=== PATIENT | female | born 2005 | race Asian ===

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

== ENCOUNTER 2023-05-20 17:57 | Emergency (ER) | payer OTHER, SELFPAY ==
[2023-05-20 18:05] VITALS: BP 151/88; PULSE 136; RESP 18; TEMP 37.8; O2SAT 97; BMI 18.3
--- NOTE | 2023-05-20 18:18 | ED.GENADULT ---
HPI - General Adult General Chief complaint: Abdominal Pain Stated complaint: Lower back and abdomen pain-vag bleeding Time Seen by Provider: 05/20/23 18:05 History of Present Illness HPI narrative: Pt [employer]. Pt c/o lower abdominal and flank pressure for three days. Also c/o spotting for 10 days after her period, feeling nauseated, burning with urination, and bleeding while wiping. Pt states she was tested for and UTI at [facility] and was negative. Tested for gonorrhea/ chlamydia today but tests pending. Pt states same partner for about a year. Pt states she was diagnosed with bacterial vaginosis today and prescribed Flagyl, but advised to come to ER because of the severe pain and burning and blood with urination. Pt notes she took Plan B three months ago and has had irregular periods since, but I've never felt pain like this. 17-year-old young woman presenting to the emergency department with concern of flank pain. This seems to be the primary pain. Was just seen a [facility] today and apparently negative for urinalysis and . Pending gonorrhea and chlamydia testing results. Sounds like that will take 2-3 days yet. She is sexually active with the same partner for about a year. She has not had any unusual discharge vaginally but did test positive for BV today. Just picked up Flagyl prescription. In February took Plan B and since that time has continued to have vaginal spotting. Over the last 3 days though has had increased discomfort in the low abdomen and flank with blood spotting on tissue after urinating which she thinks is vaginal and also painful wiping after urination. She is chronically constipated but does not feel like that is abnormal at this point continuing to have a bowel movement couple times a week. Has been taking ibuprofen which has been helpful. She does note now having a fever referring to the 100.1 temperature measured at triage. She feels little congestion in her throat otherwise no sore throat no shortness of breath. Apparently called and was advised to come in for possible ovarian cyst. Has a history of irregular menses prompting oral contraception. Spotting has continued since taking plan B as noted above. She has had some mild nausea but does not feel she needs any treatment for this. Related Data Home Medications Medication Instructions Recorded Confirmed levonorgestrel 0.15 mg-ethinyl 1 tab PO QDAY 11/01/22 05/20/23 estradiol 0.03 mg tablet ([place] 28) metronidazole 500 mg tablet 500 mg PO BID 05/20/23 05/20/23 Previous Rx's Medication Instructions Recorded ondansetron 4 mg disintegrating 4 mg PO Q4-6H PRN nausea and 05/20/23 tablet vomiting #9 tabs cephalexin 500 mg capsule 500 mg PO TID 7 days #21 caps 05/21/23 phenazopyridine 200 mg tablet 200 mg PO QID PRN urinary pain #10 05/21/23 tabs Allergies Allergy/AdvReac Type Severity Reaction Status Date / Time No Known Drug Allergies Allergy Verified 05/20/23 18:15 Review of Systems Status of ROS: Reports: 6 or more systems reviewed and unremarkable except as noted in History and below [facility] Medical History Unprotected sex ?Z72.51 - High risk heterosexual behavior (ICD-10) Vaginal symptom ?N94.9 - Unspecified condition associated with female genital organs and menstrual cycle (ICD-10) Social History Non-prescribed substance use: denies use Exam Narrative: Exam Narrative: Pleasant. Transitioning as if in discomfort with her hand at her right flank. She is bent over just a little bit. Is breathing easily. Skin is warm and dry. Closed comedonal acne over her cheeks. Oropharynx is moist trace erythema. No exudate. Neck is supple without lymphadenopathy. Lungs are clear. Heart is tachycardic and in a regular rhythm. Is quite tender to percussion in bilateral flanks. Abdomen is flat and soft. Initially sore in the suprapubic area centrally but that seems to be equally sore in the adnexal though reports low more discomfort in the right. Appears mild generally in this area. No peritoneal signs. Normoactive bowel sounds. Extremities are well perfused without edema. Const: Vital Signs, click to edit/add: Vital Signs - 24 hr 05/20/23 18:05 05/20/23 19:28 05/20/23 21:12 Temperature 100.1 F H 100.3 F H 100.0 F H Pulse Rate 106 H Pulse Rate [Pulse Oximeter] 136 H 113 H Respiratory Rate 18 16 16 Blood Pressure 133/89 Blood Pressure [Ri ght Upper Arm] 151/88 H 131/90 H Pulse Oximetry 97 100 97 Oxygen Delivery Me thod Room Air Room Air Room Air Documenting provider has reviewed patient's vital signs: yes Course Vital Signs Vital signs: Initial Vital Signs Temperature 100.1 F H 05/20/23 18:05 Temperature Source Temporal Artery Scan 05/20/23 18:05 Pulse Rate 136 H 05/20/23 18:05 Respiratory Rate 18 05/20/23 18:05 Blood Pressure 151/88 H 05/20/23 18:05 Blood Pressure Mean 109 H 05/20/23 18:05 Blood Pressure Position Sitting 05/20/23 18:05 Pulse Oximetry 97 05/20/23 18:05 Oxygen Delivery Method Room Air 05/20/23 18:05 Vital Signs Temperature 100.1 F H 05/20/23 18:05 Pulse Rate 136 H 05/20/23 18:05 Respiratory Rate 18 05/20/23 18:05 Blood Pressure 151/88 H 05/20/23 18:05 Pulse Oximetry 97 05/20/23 18:05 Oxygen Delivery Method Room Air 05/20/23 18:05 Temperature 100.0 F H 05/20/23 21:12 Pulse Rate 106 H 05/20/23 21:12 Respiratory Rate 16 05/20/23 21:12 Blood Pressure 133/89 05/20/23 21:12 Pulse Oximetry 97 05/20/23 21:12 Oxygen Delivery Method Room Air 05/20/23 21:12 Medications Administered Medications: Discontinued Medications Generic Name Dose Route Start Last Admin Trade Name Freq PRN Reason Stop Dose Admin Ibuprofen 600 mg 05/20/23 18:39 05/20/23 19:05 Ibuprofen 200 Mg Tablet PO 05/20/23 18:40 600 mg ONCE ONE Administration Medical Decision Making MDM Narrative Medical decision making narrative: This elevated temperature or pain could be driving her tachycardia. I would presume that there is some hematuria and possible urinary tract infection/pyelonephritis or urethritis. Could be secondary COVID or influenza also contributing. Perhaps the blood that she is noting upon wiping is actually vaginal and related to this BV. I suppose be could be causing a lot of her abdominal symptoms as well; some women do seem to have much more discomfort with that. No personal or family history of kidney stones apparently. I would like to repeat test and urinalysis. She the would be willing to do gonorrhea chlamydia testing again as results would be available quickly here. Unfortunately she did urinate relatively recently. She would prefer not to have blood draw or IV placed. Would accept oral ibuprofen. At this point have deferred vaginal exam but if indeed blood is vaginal would think more about ectopic source or endometritis though does not seem to have that degree of discomfort. Doubtful that ovarian cyst would be contributing to the blood that she is reporting. Pain symptoms seem inconsistent with ovarian cyst. This process generally does seem to be infectious. Given her preference will start with urinalysis and gonorrhea chlamydia testing along with verifying urine test. After extended time all resulted. Urinalysis does look to have findings consistent with infection and certainly hematuria. Overall she appears to feel a lot better following treatment with ibuprofen. Re-examination the abdomen again seems to have most discomfort centrally in the suprapubic area. Mild. I do not think that ultrasound will answer picture here, at least her concern of ovarian cyst. I think cystitis/UTI/pyelonephritis is likely diagnosis. Admittedly some of the findings in the urine may be related to this BV diagnosis; she has Flagyl for this. I would like to initiate antibiotics for UTI. She would prefer oral medication management. Will start with cephalexin pending urine culture results. See patient discharge plan Lab Data Lab results reviewed: Yes I reviewed the patient's lab results Labs: Lab Results 05/20/23 05/20/23 Range/Units 19:06 19:12 Urine Color Yellow (Yellow) Urine Appearance Clear (Clear) Urine pH 6.0 (5.0-8.5) Ur Specific [place] 1.015 (1.000-1.030) Urine Protein 2+ A (Negative) Urine Glucose (UA) Negative (Negative) Urine Ketones Negative (Negative) Urine Blood 3+ A (Negative) Urine Nitrite Negative (Negative) Urine Bilirubin Negative (Negative) Urine Urobilinogen 0.2 (0.2-1.0) Ur Leukocyte Esterase Trace A (Negative) Urine RBC 5-10 A (0-2) Urine WBC 5-10 A (0-5) Ur Squamous Epith Cells Few (None-Few) Urine Bacteria Few A (None) Urine HCG, Qual Negative (Negative) C.trachomatis Ampl DNA NOT DETECTED (No Detected) SARS-CoV-2 (PCR) Negative SARS-CoV-2 (Negative) Influenza Type A (PCR) Negative PCR FLU A (Negative) Influenza Type B (PCR) Negative PCR FLU B (Negative) N.gonorrhoeae Ampl DNA NOT DETECTED (No Detected) RSV (PCR) Negative PCR RSV (Negative) Discharge Plan Discharge Clinical Impression: Urinary tract infection, Cystitis Patient Disposition: Home, Self-Care Condition: Stable Additional Instructions: Please take antibiotics as prescribed. We will call you if urine culture results recommend different course of action. Starting with cephalexin from [facility]. Take 1 and half tabs of cephalexin tonight and tomorrow morning. Will also make available Zofran(ondansetron) for nausea and Pyridium(phenazopyridine) if you like which can help with that burning sensation. Focus on hydration with water. Avoid juices, sugared drinks at this time. Return for marked and persistent increase in abdominal pain, repeated vomiting, persistent fever. Prescriptions: New ondansetron 4 mg tablet,disintegrating 4 mg PO Q4-6H PRN (Reason: nausea and vomiting) Qty: 9 0RF Rx Instructions: give 1st dose 30min before emetogenic chemo cephalexin 500 mg capsule 500 mg PO TID 7 Days Qty: 21 0RF phenazopyridine 200 mg tablet 200 mg PO QID PRN (Reason: urinary pain) Qty: 10 0RF No Action levonorgestrel-ethinyl estrad [[place] 28] 0.15-0.03 mg tablet 1 tab PO QDAY metronidazole 500 mg tablet 500 mg PO BID Follow Up/Referrals: Provider,Not a Local [Primary Care Provider] - Stand Alone Forms: [facility] Info Instructions
[2023-05-20] MEDS: IBUPROFEN 200 MG TABLET 600 MG PO (19:05)
[2023-05-20 19:28] VITALS: BP 131/90; PULSE 113; RESP 16; TEMP 37.9; O2SAT 100
[2023-05-20 19:38] LABS: Appearance Urine Clear (Clear); Bilirubin Urine Negative (Negative); Blood Urine 3+ (Negative); Color Urine Yellow (Yellow); Glucose Urine Negative (Negative); Ketones Urine Negative (Negative); Leukocyte Esterase Urine Trace (Negative); Nitrite Urine Negative (Negative); Protein Urine 2+ (Negative); Specific Gravity Urine 1.015 (1.000-1.030); Urobilinogen Urine 0.2 (0.2-1.0)
[2023-05-20 20:06] LABS: PCR FLU A Negative PCR FLU A (Negative); PCR FLU B Negative PCR FLU B (Negative); PCR RSV Negative PCR RSV (Negative); SARS PCR* Negative SARS-CoV-2 (Negative)
[2023-05-20 20:18] LABS: Ur HCG Qualitative* Negative (Negative)
[2023-05-20 20:35] LABS: Bacteria Urine Few; Squamous Epithelial Cell Urine Few (None-Few)
[2023-05-20 21:12] VITALS: BP 133/89; PULSE 106; RESP 16; TEMP 37.8; O2SAT 97
[2023-05-20 21:31] LABS: Chlamydia DNA Amplified* NOT DETECTED (No Detected); GC DNA Amplified* NOT DETECTED (No Detected)
--- NOTE | 2023-05-20 22:14 | PC.NURSE ---
patient DC ambulatory, pain well controlled, DC instructions reviewed with patient, no further questions.
== END 2023-05-20 22:13 | disposition home or self-care (01) ==
PROVIDERS: Emergency Provider Family Medicine
DX: N39.0 Urinary tract infection, site not specified (principal); N30.90 Cystitis, unspecified without hematuria
CPT/HCPCS: 81001; 81025; 87086; 87186; 87491; 87591; 87631; 99283; 99284; A9270

== ENCOUNTER 2024-05-29 00:05 | Outpatient (CLI) | payer OTHER, SELFPAY | END 2024-05-29 00:06 | disposition home or self-care (01) | LOC: AMB 06-16 07:37 | PROVIDERS: Visit Provider Family Medicine | DX: F41.9 Anxiety disorder, unspecified (principal) | CPT/HCPCS: A0998 ==

== ENCOUNTER 2024-05-29 00:33 | Emergency (ER) | payer OTHER, SELFPAY ==
[2024-05-29 00:37] VITALS: BP 148/96; PULSE 83; RESP 18; TEMP 37.1; O2SAT 98; BMI 17.4
--- NOTE | 2024-05-29 01:05 | ED_ITS ---
HPI - General Adult General Chief complaint: Dizziness/Vertigo Stated complaint: shakey, rushing thoughts Time Seen by Provider: 05/29/24 00:58 History of Present Illness HPI narrative: Patient is a 18-year-old woman who his anxiety and depression and is on Lexapro at 10 mg daily recently increased to 15 mg daily. After several days of being on 15 mg patient feels like she is having some tremulousness a general malaise anxiety and fatigue. She has really had no other symptoms of shruti. Patient is uncertain if they 15 mg is working for her is concerned that maybe something metabolically wrong. She has had no chest pain no shortness a breath or abdominal pain no diarrhea no nausea no vomiting no rashes no swelling. Related Data Home Medications ?Medication ?Instructions ?Recorded ?Confirmed levonorgestrel 0.15 mg-ethinyl 1 tab PO QDAY 11/01/22 05/29/24 estradiol 0.03 mg tablet ([place] 28) metronidazole 500 mg tablet 500 mg PO BID 05/20/23 05/20/23 escitalopram oxalate 10 mg tablet mg DAILY 05/29/24 Previous Rx's ?Medication ?Instructions ?Recorded ondansetron 4 mg disintegrating 4 mg PO Q4-6H PRN nausea and 05/20/23 tablet vomiting #9 tabs cephalexin 500 mg capsule 500 mg PO TID 7 days #21 caps 05/21/23 phenazopyridine 200 mg tablet 200 mg PO QID PRN urinary pain #10 05/21/23 tabs Allergies Allergy/AdvReac Type Severity Reaction Status Date / Time No Known Drug Allergies Allergy Verified 05/29/24 00:43 Review of Systems Status of ROS: Reports: 10 or more systems reviewed and unremarkable except as noted in History and below [facility] Medical History Unprotected sex ?Z72.51 - High risk heterosexual behavior (ICD-10) Vaginal symptom ?N94.9 - Unspecified condition associated with female genital organs and menstrual cycle (ICD-10) Social History Non-prescribed substance use: denies use Exam Narrative: Exam Narrative: EXAM GENERAL: Patient appears comfortable and well. EYES: No scleral icterus. LYMPH: No supraclavicular or cervical lymphadenopathy. SKIN: Visible skin seen during exam normal or with benign process only. EXT: No dependent lower extremity pedal edema. HEART: Regular rate and rhythm with no murmurs, rubs, or gallops. LUNGS: Clear to auscultation bilaterally with no crackles or wheezes. ABD: Soft, non tender, non distended. PSYCH: Good eye contact, speech is not pressured. Const: Vital Signs, click to edit/add: Vital Signs - 24 hr 05/29/24 00:37 Temperature 98.8 F Pulse Rate [Right Pulse Oximeter] 83 Respiratory Rate 18 Blood Pressure [Ri ght Upper Arm] 148/96 H Pulse Oximetry 98 Oxygen Delivery Me thod Room Air Course Course ED Course: CBC basic metabolic panel pending. Patient seen and examined. Vital Signs Vital signs: Initial Vital Signs Temperature 98.8 F 05/29/24 00:37 Temperature Source Temporal Artery Scan 05/29/24 00:37 Pulse Rate 83 05/29/24 00:37 Pulse Rhythm Regular 05/29/24 00:37 Respiratory Rate 18 05/29/24 00:37 Blood Pressure 148/96 H 05/29/24 00:37 Blood Pressure Mean 113 H 05/29/24 00:37 Blood Pressure Position Sitting 05/29/24 00:37 Pulse Oximetry 98 05/29/24 00:37 Oxygen Delivery Method Room Air 05/29/24 00:37 Vital Signs Temperature 98.8 F 05/29/24 00:37 Pulse Rate 83 05/29/24 00:37 Respiratory Rate 18 05/29/24 00:37 Blood Pressure 148/96 H 05/29/24 00:37 Pulse Oximetry 98 05/29/24 00:37 Oxygen Delivery Method Room Air 05/29/24 00:37 Temperature 98.8 F 05/29/24 00:37 Pulse Rate 83 05/29/24 00:37 Respiratory Rate 18 05/29/24 00:37 Blood Pressure 148/96 H 05/29/24 00:37 Pulse Oximetry 98 05/29/24 00:37 Oxygen Delivery Method Room Air 05/29/24 00:37 Medical Decision Making MDM Narrative Medical decision making narrative: Patient presents with increased anxiety on higher dose of Lexapro to 15 mg. Lab workup is unremarkable. Patient shows no signs of shruti. This time I did offer reassurance and asked her to lower her Lexapro to 10 mg daily. I recommended close outpatient follow-up. Lab Data Labs: Lab Results 05/29/24 Range/Units 01:13 WBC 7.76 (4.50-11.00) K/uL RBC 4.18 (4.00-5.20) m/uL Hgb 12.2 (12.0-16.0) gm/dL Hct 36.9 (33.0-51.0) % MCV 88 (80-100) fL MCH 29 (26-34) pg MCHC 33 (32-36) gm/dL RDW Coeff of [place] 13.0 (11.5-15.5) % Plt Count 306 (140-440) K/uL Neut % (Auto) 67.7 (42.0-72.0) % Lymph % (Auto) 25.0 (20-44) % [place] % (Auto) 5.0 (0.0-11.0) % Eos % (Auto) 1.9 (0.0-7.0) % Baso % (Auto) 0.3 (0.0-3.0) % Neut # (Auto) 5.25 (1.7-7.0) K/uL Lymph # (Auto) 1.94 (0.90-2.90) K/uL [place] # (Auto) 0.40 (0.00-0.90) K/UL Eos # (Auto) 0.15 (0.00-0.50) K/uL Baso # (Auto) 0.02 (0.00-0.30) K/uL Abs Immat Gran (auto) 0.01 (0.00-0.30) K/uL Imm/Tot Granulo (auto) 0.1 % Sodium 139 (135-149) mmol/L Potassium 3.5 L (3.6-5.1) mmol/L Chloride 106 (96-114) mmol/L Carbon Dioxide 25 (20-32) mmol/L Anion Gap 8 (7-15) mEq/L BUN 10 (5-24) mg/dL Creatinine 0.7 (0.5-1.5) mg/dL Estimated Creat Clear 87.21 Estimated GFR 127 ml/min Glucose 130 H (60-115) mg/dL Calcium 8.6 (8.4-10.6) mg/dL Discharge Plan Discharge Clinical Impression: Anxiety Patient Disposition: Home, Self-Care Condition: Stable Instructions: Anxiety (ED) Additional Instructions: Reduced dose of Lexapro to 10 mg daily Follow-up with your doctor/psychiatrist next week. Activity Level: No Restrictions Discharge Diet: Regular Prescriptions: No Action levonorgestrel-ethinyl estrad [[place] 28] 0.15-0.03 mg tablet 1 tab PO QDAY metronidazole 500 mg tablet 500 mg PO BID ondansetron 4 mg tablet,disintegrating 4 mg PO Q4-6H PRN (Reason: nausea and vomiting) Qty: 9 0RF Rx Instructions: give 1st dose 30min before emetogenic chemo cephalexin 500 mg capsule 500 mg PO TID 7 Days Qty: 21 0RF phenazopyridine 200 mg tablet 200 mg PO QID PRN (Reason: urinary pain) Qty: 10 0RF escitalopram oxalate 10 mg tablet DAILY Follow Up/Referrals: Provider,Not a Local [Primary Care Provider] - Stand Alone Forms: [facility] Info Instructions
[2024-05-29 01:16] LABS: Basophils Absolute Auto 0.02 K/uL (0.00-0.30); Basophils Percent Auto 0.3 % (0.0-3.0); Eosinophils Absolute Auto 0.15 K/uL (0.00-0.50); Eosinophils Percent Auto 1.9 % (0.0-7.0); Hematocrit 36.9 % (33.0-51.0); Hemoglobin* 12.2 gm/dL (12.0-16.0); Immature Granulocytes Abs Auto 0.01 K/uL (0.00-0.30); Immature Granulocytes Pct Auto 0.1 %; Lymphocytes Absolute Auto 1.94 K/uL (0.90-2.90); Mean Corpuscular HGB Conc 33 gm/dL (32-36); Mean Corpuscular Hemoglobin 29 pg (26-34); Mean Corpuscular Volume 88 fL (80-100); Neutrophils Absolute Auto 5.25 K/uL (1.7-7.0); Neutrophils Percent Auto 67.7 % (42.0-72.0); Platelet Count* 306 K/uL (140-440); Red Blood Count 4.18 m/uL (4.00-5.20); White Blood Count* 7.76 K/uL (4.50-11.00)
[2024-05-29 01:26] LABS: Slide Review Reflex No
[2024-05-29 01:41] LABS: Chloride* 106 mmol/L (96-114); Potassium* 3.5 mmol/L (3.6-5.1); Sodium* 139 mmol/L (135-149)
[2024-05-29 01:46] LABS: Anion Gap 8 mEq/L (7-15); Blood Urea Nitrogen* 10 mg/dL (5-24); Calcium* 8.6 mg/dL (8.4-10.6); Carbon Dioxide* 25 mmol/L (20-32); Creatinine* 0.7 mg/dL (0.5-1.5); Est. Creatinine Clearance* 87.21; Estimated Glomerular Filt Rate 127 ml/min; Glucose* 130 mg/dL (60-115)
== END 2024-05-29 02:08 | disposition home or self-care (01) ==
PROVIDERS: Emergency Provider Internal Medicine
DX: F41.9 Anxiety disorder, unspecified (principal)
CPT/HCPCS: 36415; 80048; 85025; 99283; 99284